=== PATIENT | male | born 1960 | race Caucasian/White ===

== ENCOUNTER 2020-07-31 11:49 | Observation (INO) | payer MEDICAID ==
[~2020-07-31] VITALS: Ht 182.9 cm; Wt 90.0 kg
[2020-07-31 12:03] LABS: BASOPHILS % (AUTO) 0.7 % (0.0-5.0); EOSINOPHILS % (AUTO) 0.9 % (0.0-8.0); HEMATOCRIT 47.9 % (42-54); LYMPHOCYTES % (AUTO) 31.7 % (21.0-51.0); MEAN CORPUSCULAR HEMOGLOBIN 33.5 pg (27.0-33.0); MEAN CORPUSCULAR HGB CONC 35.5 g/dL (32.0-36.0); MEAN CORPUSCULAR VOLUME 94.5 fL (79-99); MONOCYTES % (AUTO) 5.5 % (3.0-13.0); NEUTROPHILS % (AUTO) 60.9 % (40.0-77.0); PLATELET COUNT (AUTO) 256 K/uL (130-400); RED BLOOD CELL COUNT(AUTO) 5.07 MIL/uL (4.50-6.20); RED CELL DISTRIBUTION WIDTH 11.5 % (11.0-15.5); WHITE BLOOD COUNT (AUTO) 8.9 K/uL (4.8-10.8)
[2020-07-31 12:16] LABS: INR 0.97 (0.85-1.15); PARTIAL THROMBOPLASTIN TIME 27.5 SEC (26.3-35.5); POTASSIUM 3.9 mmol/L (3.5-5.1); PROTHROMBIN TIME 10.5 SEC (9.6-11.6)
[2020-07-31 12:20] LABS: ALBUMIN 4.6 g/dL (3.5-5.0); BILIRUBIN,TOTAL 0.8 mg/dL (0.2-1.0); TOTAL PROTEIN, SERUM 8.8 g/dL (6.0-8.3)
[2020-07-31 12:58] LABS: APPEARANCE,URINE Clear (CLEAR); BILIRUBIN,URINE Negative (NEGATIVE); COLOR,URINE Yellow (YELLOW); GLUCOSE, URINE (UA) Negative (NEGATIVE); KETONES,URINE Negative (NEGATIVE); LEUKOCYTE ESTERASE ,URINE Negative (NEGATIVE); NITRATE,URINE Negative (NEGATIVE); OCCULT BLOOD,URINE Negative (NEGATIVE); PH,URINE 7.5 (5.0-8.0); PROTEIN,URINE Negative (NEGATIVE)
[2020-07-31 13:00] LABS: MAGNESIUM 1.6 mg/dL (1.80-2.40); PHOSPHORUS 3.5 mg/dL (2.5-4.9)
[2020-07-31 13:05] LABS: AMPHET/METH SCREEN,URINE NEGATIVE (NEGATIVE); BARBITURATE SCREEN, URINE NEGATIVE (NEGATIVE); BENZODIAZEPINES SCREEN,URINE NEGATIVE (NEGATIVE); CANNABINOID SCREEN,URINE POSITIVE (NEGATIVE); COCAINE SCREEN,URINE NEGATIVE (NEGATIVE); OPIATE SCREEN,URINE NEGATIVE (NEGATIVE); PHENCYCLIDINE SCREEN,URINE NEGATIVE (NEGATIVE)
[2020-07-31] MEDS: SODIUM CHLORIDE 0.9% 1000ML 1,000 ML IV SCH (13:30)
[2020-07-31] MEDS ORDERED: MAGNESIUM 2GM PREMIX 50ML 50 ML IV PRN (13:45)
[2020-07-31] MEDS ORDERED: CHLORDIAZEPOXIDE HCL 25 MG CAP PO PRN (13:45)
[2020-07-31] MEDS ORDERED: PHARMACY COMMUNICATION MISC PRN (13:45)
[2020-07-31 14:49] LABS: THYROID STIMULATING HORMONE 1.87 uIU/mL (0.36-3.74)
[2020-07-31] MEDS ORDERED: THIAMINE HCL 100 MG, FOLIC ACID 1 MG, M.V.I. IV [ADULT] 10 ML in SODIUM CHLORIDE 0.9% 1... IV SCH (15:00)
[2020-07-31] MEDS ORDERED: IBUPROFEN 400 MG TABLET ONE (18:28)
--- NOTE | 2020-07-31 20:00 | NUR ---
REPORT RECEIVED FROM CARTER SPENCE. PATIENT ALERT AND ORIENTED TIMES 3 AT 2020. HE REFUSES SEIZURE PRECAUTION PADS ON HIS BED RAILS BECAUSE HE CLAIMS "HE IS NOT AN ALCOHOLIC" AND DOESN'T NEED THEM. PATIENT TEACHING DONE AND PATIENT VERBALIZES UNDERSTANDING. I ENTERED HIS HOME MEDICATIONS AND VERBALLY NOTIFIED MICA ZAMBRANO. MICA SAID THAT THERE WOULD NEED TO BE CLARIFICATION IN THE MORNING BECAUSE [facility] [employer] ONLY RESUMED 2 HOME MEDICATIONS. NO FURTHER ISSUES.
[2020-07-31 20:11] VITALS: BP_SYST 127; BP_SYST 135; BP_SYST 137; BP_DIAS 78; BP_DIAS 82
[2020-07-31] MEDS ORDERED: LISI40TA4 PO (20:55)
[2020-07-31] MEDS ORDERED: HYDR12.54 PO (20:55)
[2020-07-31] MEDS ORDERED: AMLO-258 PO (20:55)
[2020-07-31] MEDS ORDERED: ERGO500014 PO (20:55)
[2020-07-31] MEDS ORDERED: ATOR10TA69 PO (20:59)
[2020-07-31] MEDS ORDERED: FLU VACC QS2020-21(6MOS UP)/PF 60 MCG/0.5 ML ML IM ONE (21:15)
[2020-07-31] MEDS: FLU VACC QS2020-21(6MOS UP)/PF 60 MCG/0.5 ML ML IM ONE ×2 (21:59→22:47)
[2020-08-01] VITALS (12 sets, daily range): BP systolic 116–144; BP diastolic 77–98
[2020-08-01] MEDS: SODIUM CHLORIDE 0.9% 1000ML 1,000 ML IV SCH (04:17)
[2020-08-01 06:42] LABS: BASOPHILS % (AUTO) 0.7 % (0.0-5.0); EOSINOPHILS % (AUTO) 2.3 % (0.0-8.0); HEMATOCRIT 41.6 % (42-54); MEAN CORPUSCULAR HEMOGLOBIN 33.1 pg (27.0-33.0); MEAN CORPUSCULAR HGB CONC 34.6 g/dL (32.0-36.0); MEAN CORPUSCULAR VOLUME 95.6 fL (79-99); MONOCYTES % (AUTO) 8.9 % (3.0-13.0); NEUTROPHILS % (AUTO) 52.8 % (40.0-77.0); PLATELET COUNT (AUTO) 173 K/uL (130-400); RED BLOOD CELL COUNT(AUTO) 4.35 MIL/uL (4.50-6.20); RED CELL DISTRIBUTION WIDTH 11.5 % (11.0-15.5); WHITE BLOOD COUNT (AUTO) 6.1 K/uL (4.8-10.8)
[2020-08-01 06:51] LABS: MAGNESIUM 2.1 mg/dL (1.80-2.40); POTASSIUM 3.8 mmol/L (3.5-5.1)
[2020-08-01] MEDS: LISINOPRIL 20 MG TABLET PO SCH (10:12)
[2020-08-01] MEDS: PANTOPRAZOLE SODIUM 40 MG TABLET.DR PO SCH (10:12)
[2020-08-01] MEDS: HYDROCHLOROTHIAZIDE 25 MG TABLET PO SCH (10:12)
[2020-08-01] MEDS: ENOXAPARIN SODIUM 40 MG/0.4 ML SYRINGE SQ SCH (10:16)
[2020-08-01] MEDS ORDERED: FLECAINIDE ACETATE 100 MG TABLET PO SCH (10:55)
--- NOTE | 2020-08-01 12:04 | NUR ---
DCP CM met with pt in room with spouse discussed dc plans. Pt is independent prior to admission, lives at home with spouse and son. Denies any equipments/services. Feels safe to go back home, still drives, spouse able to assist with transportation and needs as necessary. DC plan to home once stable. CM to continue to follow up. Addendum: 08/01/20 at 1206 by MERARI TAVERAS LVN CM Amended: Links added.
[2020-08-01] MEDS ORDERED: ATORVASTATIN CALCIUM 10 MG TABLET PO SCH (21:00)
[2020-08-01] MEDS ORDERED: AMLODIPINE BESYLATE 5 MG TAB PO SCH (21:00)
[2020-08-01] MEDS: FLECAINIDE ACETATE 100 MG TABLET PO SCH (21:01)
[2020-08-02] VITALS (9 sets, daily range): BP systolic 122–143; BP diastolic 80–98
[2020-08-02] MEDS: SODIUM CHLORIDE 0.9% 1000ML 1,000 ML IV SCH (08:00)
[2020-08-02] MEDS ORDERED: MULTIVITAMIN TABLET PO SCH (09:00)
[2020-08-02] MEDS: PANTOPRAZOLE SODIUM 40 MG TABLET.DR PO SCH (09:00)
[2020-08-02] MEDS ORDERED: FOLIC ACID 1 MG TABLET PO SCH (09:00)
[2020-08-02] MEDS ORDERED: THIAMINE HCL 100 MG TABLET PO SCH (09:00)
[2020-08-02] MEDS: FLECAINIDE ACETATE 100 MG TABLET PO SCH (09:36)
[2020-08-02] MEDS: HYDROCHLOROTHIAZIDE 25 MG TABLET PO SCH (09:37)
[2020-08-02] MEDS: LISINOPRIL 20 MG TABLET PO SCH (09:37)
[2020-08-02] MEDS: ENOXAPARIN SODIUM 40 MG/0.4 ML SYRINGE SQ SCH (09:39)
[2020-08-02] MEDS ORDERED: FLEC50TA3 PO (11:37)
--- NOTE | 2020-08-02 13:30 | NUR ---
DISCHARGE INSTRUCTIONS GIVEN TO PATIENT, MADE AWARE TO REPORT TO DR. WOLFF OFFICE UPON DISCHARGE FOR HEART MONITOR. MADE AWARE OF FOLLOW UP APPOINTMENT WITH PCP DR. CAO IN [place]. PATIENT AT THIS TIME DENIES ANY DIZZINESS OR PALPITATIONS. REPORTS HE FEELS GREAT. IV AND TELE DISCONTINUED. PATIENTS SPOUSE AT BEDSIDE. ALL QUESTIONS ANSWERED
--- NOTE | 2020-08-03 19:42 | NUR ---
FOLLOW UP CALL T/C PLACED AND SPOKE WITH MR. CABRERA, SAID HE PICKED UP HIS PRESCRIPTION AND HAS STARTED TAKING MEDICATION. ALSO SAID HE HAS HIS HEART MONITOR AND IS AWARE OF HIS FOLLOW UP APPT WITH HIS PRIMARY.
== END 2020-08-02 13:45 | disposition home or self-care (01) ==
LOC: EDH 11:49 → EDHIP 11:50 → 4DH 20:11
PROVIDERS: ADMIT Internal Medicine; ATTEND Internal Medicine
DX: I48.0 Paroxysmal atrial fibrillation (principal); R42 Dizziness and giddiness; I10 Essential (primary) hypertension; E78.5 Hyperlipidemia, unspecified; K21.9 Gastro-esophageal reflux disease without esophagitis; F10.10 Alcohol abuse, uncomplicated; F41.0 Panic disorder [episodic paroxysmal anxiety]; I49.5 Sick sinus syndrome; G89.29 Other chronic pain; E11.9 Type 2 diabetes mellitus without complications; E78.00 Pure hypercholesterolemia, unspecified; Z23 Encounter for immunization; Z90.49 Acquired absence of other specified parts of digestive tract; Z96.659 Presence of unspecified artificial knee joint; Z79.899 Other long term (current) drug therapy
CPT/HCPCS: 36415 ×2; 70450; 71045; 80048; 80053; 80305; 81003; 82550; 82607; 82746; 83735 ×2; 83880; 84100; 84145; 84439; 84443; 84484; 85025 ×2; 85610; 85730; 90471; 93005; 93306; 93356; 96361 ×2; 96365; 96366; 96372 ×2; 99285; G0378 ×47; J1650 ×2; J3411; J3475; J3490; J7030 ×2; Q2035; G0008